=== PATIENT | female | born 1955 | race Caucasian/White ===

== ENCOUNTER 2017-06-21 22:20 | Inpatient (IN) | payer OTHER ==
[2017-06-21 23:12] LABS: #Basophils 0.1 thou/uL (0.0-0.2); #Eosinphils 0.1 thou/uL (0.0-0.7); #Lymphocytes 2.9 thou/uL (1.20-3.40); #Neutrophils 6.8 thou/uL (1.40-6.50); %Basophils 0.8 % (0.0-1.0); %Eosinophils 1.2 % (0.0-10.0); %Lymphocytes 26.4 % (21.0-51.0); %Monocytes 8.8 % (0.0-10.0); %Neutrophils 62.8 % (42.0-75.0); Hemoglobin 14.2 g/dL (12.0-16.0); Mean Corpuscular HGB CONC 34.8 g/dL (32.0-36.0); Mean Corpuscular Volume 86.2 fl (81.0-99.0); Mean Platelet Volume 6.5 fL (7.4-10.4); Platelet Count 264 thou/uL (130-400); RBC Distribution Width 11.1 % (11.5-14.5); Red Blood Cell (RBC) Count 4.73 mill/uL (4.20-5.40); White Blood Cell (WBC) Count 10.8 thou/uL (4.8-10.8)
[2017-06-21 23:24] LABS: ALT (SGPT) 34 U/L (8-55); AST (SGOT) 20 U/L (5-34); Albumin 3.9 g/dL (3.4-4.8); Alkaline Phosphatase 95 U/L (40-150); Anion Gap 15 mmol/L (10-20); BUN (Urea Nitrogen) 20 mg/dL (9.8-20.1); Bilirubin, Total 0.7 mg/dL (0.2-1.2); Calc. Creatinine Clearance 0 mL/min (70-130); Calcium 9.5 mg/dL (7.8-10.44); Carbon Dioxide 19 mmol/L (23-31); Chloride 107 mmol/L (98-107); Estimated GFR-MDRD 73; Globulin 3.4 g/dL (2.4-3.5); Glucose 109 mg/dL (80-115); Potassium 4.1 mmol/L (3.5-5.1); Protein, Total 7.3 g/dL (6.0-8.3); Sodium 137 mmol/L (136-145)
[2017-06-21 23:27] LABS: CKMB 2.7 ng/mL (0-6.6); Troponin I 0.133 ng/mL (< 0.028)
[2017-06-22] MEDS ORDERED: Aspirin 325 MG TAB ONE (00:24)
[2017-06-22 00:41] LABS: PTT 30.2 SEC (22.9-36.1); Prothrombin Time 12.9 SEC (12.0-14.7)
[2017-06-22] MEDS ORDERED: Enoxaparin Sodium 80 MG/0.8 ML SYRINGE ONE (01:53)
[2017-06-22] MEDS ORDERED: Sodium Chloride 0.9% 100 ML ONE (02:24)
[2017-06-22] MEDS ORDERED: cefTRIAXone\\ROCEPHIN 1 GM VIAL ONE (02:24)
[2017-06-22 03:17] LABS: Troponin I 0.129 ng/mL (< 0.028)
[2017-06-22] MEDS ORDERED: Acetaminophen 325 MG TAB PO PRN (03:26)
[2017-06-22] MEDS ORDERED: Ondansetron HCl/PF 4 MG/2 ML Vial IVP PRN (03:26)
[2017-06-22] MEDS ORDERED: Ondansetron ODT 4 MG TAB SL PRN (03:26)
[2017-06-22] MEDS ORDERED: Azithromycin 500 MG in Sodium Chloride 0.9% 250 ML 250 ML IVPB SCH (04:00)
[2017-06-22 04:33] VITALS: BMI 27.3
--- NOTE | 2017-06-22 05:29 | HP ---
DATE OF ADMISSION: 06/22/2017 CHIEF COMPLAINT: Shortness of breath. HISTORY OF PRESENT ILLNESS: This is a 62-year-old female with minimal past medical history who presents with a chief complaint of shortness of breath, acute onset day prior to presentation while working with physical therapy. The patient denies any prior similar issues. Denies any recent upper respiratory infections as well. Recent past medical history significant for 06/10/2017, right rotator cuff surgery. The patient has had prior surgeries and never had issues with shortness of breath postoperatively. REVIEW OF SYSTEMS: As per HPI. Constitutional: No significant weight changes , fevers or chills. HEENT: No dizziness, lightheadedness, or change in vision. Cardiovascular: No chest pressure, no chest pain, no left side arm numbness or tingling. Respiratory: Shortness of breath as noted above. No cough, no productive sputum, no issues with congestion or postnasal drip. Gastrointestinal: No nausea, vomiting, abdominal pain. No issues with constipation or diarrhea. The patient reports a retained appetite. Musculoskeletal: The patient is having some right shoulder discomfort and is working with physical therapy. Her right shoulder is currently in an immobilizing brace. Otherwise, no myalgias or arthralgias. Remainder of review of systems otherwise negative. PAST MEDICAL HISTORY: The patient denies any chronic medical issues that she is aware of. She is currently status post right shoulder labrum repair. History of right ankle surgery. Status post hysterectomy. HOME MEDICATIONS: The patient does not take any home medications. ALLERGIES: Significant for TETRACYCLINE. FAMILY HISTORY: The patient is not aware of any family history of confirmation as she is adopted. SOCIAL HISTORY: The patient is here with her at bedside. She endorses being FULL CODE. She denies any alcohol, tobacco or illicit drug use. PHYSICAL EXAMINATION: VITAL SIGNS: Temperature of 99, heart rate 92, respirations 18, satting 98% on room air, blood pressure 111/62. GENERAL: The patient is awake, alert, appropriate, in no acute distress, seated in the hospital bed, reasonable historian and oriented x3. HEENT: Moist mucous membranes. Equal ocular motions are intact. Normocephalic , atraumatic. CARDIOVASCULAR: S1, S2. No murmurs, rubs or gallops. EXTREMITIES: Pulses 2+ bilateral upper extremities, no pitting pedal edema. Respiratory: Grossly clear to auscultation, reasonable air movement. No wheezes, rales or rhonchi. Clear to auscultation bilaterally. ABDOMEN: Positive bowel sounds, soft, nontender to palpation. MUSCULOSKELETAL: The patient's right shoulder is not removed from her brace at this point in time otherwise, she is able to move her bilateral lower extremities and her left arm without difficulty and is able to self-reposition in the bed without assist. LABORATORY DATA AND IMAGING: CT of the chest was reviewed by myself, consistent with the pulmonary embolism, I do not appreciate any notable pneumonia on this imaging series. WBC 10.8, hemoglobin 14.2, hematocrit 40.8, platelets 264. INR 1.0, PT 12.9. Sodium 137, potassium 4.1, chloride 107, BUN 20, creatinine 0.8, glucose 109, calcium 9.5, total bilirubin 0.7, AST 20, ALT 34, alkaline phosphatase 95. Troponin 0.133 followed by 0.129. BNP 348.7. ASSESSMENT AND PLAN: This is a 62-year-old female who initially presented with a chief complaint of shortness of breath. 1. Shortness of breath most likely attributed to the noted bilateral pulmonary embolus. The patient has already been started on subcutaneous Lovenox full anticoagulation dosing. The patient is currently placed in the IMCU, is currently hemodynamically stable, maintaining adequate pulse oximetry saturations of 92% and better on room air. We will go ahead and check echocardiogram as well and continue with subcutaneous anticoagulation. To consider transition to an oral anticoagulant prior to D/C. 2. Status post right rotator cuff surgery, conservative management in the postoperative period. 3. Diet: Regular. 4. Activity: As tolerated. 5. Deep venous thrombosis prophylaxis. The patient is already on full dose anticoagulation. We will check bilateral lower extremity for deep venous thrombosis, determine whether or not we can place VAL or sequentials on her lower extremities for further prophylaxis if needed. 6. Admit to [facility] inpatient. 7. FULL CODE. Thank you for asking me to care for the patient. Questions or concerns, contact me at [facility]. FREDY
[2017-06-22] MEDS: Enoxaparin Sodium 80 MG/0.8 ML SYRINGE SC SCH ×2 (07:45→20:28)
--- NOTE | 2017-06-22 08:25 | CT ---
PRELIMINARY REPORT/[facility]/EMERGENCY AFTER HOURS PROCEDURE: Addendum created by Errol Echols MD on 06/22/2017 1:44 AM Central Time ([place] & [place]) THIS REPORT CONTAINS FINDINGS THAT MAY BE CRITICAL TO PATIENT CARE. The findings were verbally commun icated via telephone conference with PELON PIERCE at 1:43 AM SLOTS MANAGER on 06/22/2017. The findings were acknowledged and understood. Initial Report created on 06/22/2017 1:37 AM Central Time ([place] & [place]) EXAM: CT Angiography Chest With Intravenous Contrast CLINICAL HISTORY: 62 years old, female; Dyspnea; SOB worsening since yesterday, worse on exertion. Right rotator cuff s urgery May 10. At physical therapy yesterday began having trouble catching her breath. No cough TECHNIQUE: Axial computed tomographic angiography images of the chest with intravenous contrast using pulmonary embolism protocol. MIP reconstructed images were created and reviewed. Oblique reformatted images were created and reviewed. CONTRAST: 85 mL of ISO 370 administered intravenously. COMPARISON: No relevant prior studies available. FINDINGS: Pulmonary arteries: Focal areas of decreased density / intraluminal filling defects are present withi n the pulmonary arterial tree bilaterally consistent with acute pulmonary emboli. Aorta: Normal caliber thoracic aorta without aneurysm or dissection. Normal-variant independent origi n of the left vertebral artery directly from the aortic arch. Lungs: A few small patches of infiltrate or early small pulmonary infarction within the lateral aspec t of each lower lobe. Biapical scarring. No mass. Pleural space: No pneumothorax. No significant effusion. Heart: RV dysfunction with RV / LV ratio of 1.5. No pericardial effusion. Bones/joints: No acute fracture. No dislocation. Soft tissues: Bilateral breast implants with capsular calcification. Lymph nodes: No pathologically enlarged lymph nodes. IMPRESSION: 1. CT examination POSITIVE for acute bilateral pulmonary embolism. 2. RV dysfunction with RV / LV ratio of 1.5. 3. A few small patches of infiltrate or early small pulmonary infarction within the lateral aspect of each lower lobe. Thank you for allowing us to participate in the care of your patient. Dictated and Authenticated by: Errol Echols MD 06/22/2017 1:37 AM Central Time ([place] & [place]) FINAL REPORT CT PULMONARY ANGIO: Multiple axial tomograms obtained through the chest with IV enhancement and pulmonary angio phase. M ultiplanar reconstruction and 3D post processing performed. There are bilateral pulmonary emboli. I am in agreement with the preliminary report. POS: BRITTANI
--- NOTE | 2017-06-22 13:32 | ULT ---
BILATERAL LOWER EXTREMITY VENOUS ULTRASOUND WITH DOPPLER: HISTORY: Positive CT angiogram of the chest for PE. COMPARISON: None. TECHNIQUE: Garcia-scale, color-flow, and Doppler imaging with spectral wave-form analysis was performed to the lef t and right lower extremity venous system. FINDINGS: RIGHT LOWER EXTREMITY: There is lack of complete compressibility involving the popliteal vein, sugge sting thrombosis. The remainder of the right lower extremity superficial and deep venous system is u nremarkable. LEFT LOWER EXTREMITY: There is compressibility, presence of flow, and augmentation in the common fem oral vein, femoral vein, and popliteal vein. There is flow in the greater saphenous vein, the profun da vein, and the posterior tibial vein. IMPRESSION: Right popliteal vein deep venous thrombus. POS: BRITTANI
--- NOTE | 2017-06-22 14:30 | PQF ---
CLINICAL DOCUMENTATION IMPROVEMENT CLARIFICATION FORM: ICD-10 Updated PLEASE DO AN ADDENDUM TO THE PROGRESS NOTE WITH ANY DOCUMENTATION UPDATES OR ADDITIONS AND CARRY THROUGH TO DC SUMMARY. THANK YOU. DATE: 06/22/17 ATTN: DR. PATTERSON Please exercise your independent, professional judgment in responding to the clarification form. Clinical indicators are provided on the bottom of this form for your review Please check appropriate box(s): [ X ] (Condition) related to current/recent surgery [ ] (Condition) not related to current/recent surgery [ ] Other diagnosis [ ] Unable to determine In addition, please specify: Present on Admission (POA): [ X ] Yes [ ] No [ ] Unable to determine CLINICAL INDICATORS - SIGNS / SYMPTOMS / LABS DX: BILATERAL PULMONARY EMBOLUS RISKS: "PT REPORTS HAVING SURGERY ON THE OF LAST MONTH ON ROTATOR CUFF" ( PER ER NOTE) TREATMENT: LOVENOX (ER-PRESENT) ASPIRIN (ER) (This form is maintained as a part of the permanent medical record) 2014 [email or web address]. All Rights Reserved [email or web address] Office: [phone] FREDY
[2017-06-23 05:00] LABS: #Basophils 0.1 thou/uL (0.0-0.2); #Eosinphils 0.2 thou/uL (0.0-0.7); #Lymphocytes 2.5 thou/uL (1.20-3.40); #Monocytes 0.7 thou/uL (0.11-0.59); #Neutrophils 5.3 thou/uL (1.40-6.50); %Basophils 0.8 % (0.0-1.0); %Lymphocytes 28.6 % (21.0-51.0); %Monocytes 8.4 % (0.0-10.0); %Neutrophils 60.3 % (42.0-75.0); Hemoglobin 13.3 g/dL (12.0-16.0); Mean Corpuscular HGB CONC 34.3 g/dL (32.0-36.0); Mean Corpuscular Hemoglobin 30.6 pg (27.0-31.0); Mean Corpuscular Volume 89.2 fl (81.0-99.0); Mean Platelet Volume 6.7 fL (7.4-10.4); Platelet Count 271 thou/uL (130-400); RBC Distribution Width 11.7 % (11.5-14.5); Red Blood Cell (RBC) Count 4.34 mill/uL (4.20-5.40); White Blood Cell (WBC) Count 8.8 thou/uL (4.8-10.8)
[2017-06-23 05:13] LABS: Anion Gap 12 mmol/L (10-20); BUN (Urea Nitrogen) 15 mg/dL (9.8-20.1); Calc. Creatinine Clearance 84 mL/min (70-130); Calcium 9.2 mg/dL (7.8-10.44); Carbon Dioxide 24 mmol/L (23-31); Chloride 106 mmol/L (98-107); Estimated GFR-MDRD 72; Glucose 95 mg/dL (80-115); Potassium 4.2 mmol/L (3.5-5.1); Sodium 138 mmol/L (136-145)
[2017-06-23] MEDS: Enoxaparin Sodium 80 MG/0.8 ML SYRINGE SC SCH ×2 (07:27→20:49)
[2017-06-23] MEDS ORDERED: Acetaminophen/Codeine 30-300mg Tablet PO PRN ×2 (12:42)
[2017-06-23] MEDS: Acetaminophen 325 MG TAB PO PRN ×2 (12:49→20:55)
--- NOTE | 2017-06-23 13:00 | CON ---
DATE OF CONSULTATION: 06/23/2017 SERVICE: Pulmonary Medicine INTERVAL HISTORY: The patient is doing fine from cardiovascular and respiratory standpoint. Starting Tuesday of this week, she started having increasing shortness of breath. This slowly progressed over a period of time. On , she went out to walk to her mailbox, but had to turn around and she could not make it. At that point, she was brought to the emergency department after her googled some things that could be postop side effects associated with recent shoulder surgery. He found pulmonary embolism and brought her to the emergency department fearing that. A scan confirmed that she did in fact have a pulmonary embolism. She also had an elevated BNP and troponin. Echocardiogram was performed. The CT of the chest was consistent with right heart strain. Either way, the patient is on room air. She indicates that she had a significant improvement in her symptoms over the past 24 hours. She has been able to get up and walk around the room ever so slightly. This is not causing her significant distress any longer as it previously did. PAST MEDICAL HISTORY: None. PAST SURGICAL HISTORY: 1. Left ankle surgery. 2. Hysterectomy. 3. Right rotator cuff surgery repair. ALLERGIES: TETRACYCLINE. MEDICATIONS: Inpatient medications were reviewed. No updates were made at this time. FAMILY HISTORY: Noncontributory. She is adopted and does not know of any primary relatives. SOCIAL HISTORY: Negative for alcohol, tobacco or illicit drug use. She denies any exposure to chemicals, dust, asbestos or tuberculosis. REVIEW OF SYSTEMS: General, head, ears, eyes, nose, throat, cardiovascular, respiratory, GI, , musculoskeletal, neurologic and skin is negative except as mentioned in the HPI. PHYSICAL EXAMINATION: VITAL SIGNS: Afebrile, pulse 78, blood pressure 123/44, respirations 16, saturation 96% on room air. GENERAL: The patient is awake and alert, in no apparent distress. LUNGS: Decent air entry. There is no prolonged expiratory phase, wheezing, rhonchi or crackles. HEART: Normal rate, regular. ABDOMEN: Soft, nontender, nondistended. Bowel sounds are positive. MUSCULOSKELETAL: No cyanosis or clubbing. There is no pitting in the bilateral lower extremities. NEUROLOGIC: Grossly nonfocal. LABORATORY DATA: WBC 8.8, hemoglobin 13.3, platelets 271,000. INR 1.0. Basic metabolic profile is unremarkable. Liver function studies are unremarkable. Troponin is down trending to 0.12. BNP 348. IMAGIN. Ultrasound of bilateral lower extremities demonstrates right popliteal vein DVT. 2. Echocardiogram demonstrates normal ejection fraction. There is some diastolic heart dysfunction. There is also elevated right ventricular systolic pressure, though it was noted that the right ventricular function was normal. 3. CT of the chest demonstrates minimal ground glass changes throughout bilateral lung flor that are peripherally located, consistent with possible early evolving infarction of the lung. More importantly, there is extensive bilateral pulmonary embolism. There is right ventricular heart strain. There is a little ding out of the right ventricle. There is a touch of reflux of contrast into the inferior vena cava suggesting some mild right heart strain. ASSESSMENT: 1. Submassive pulmonary embolism. 2. Recent shoulder surgery less than 2 weeks ago. DISCUSSION AND PLAN: Because of the recent shoulder surgery, at this point, I am not willing to give her t-PA for a submassive pulmonary embolism. I will repeat a troponin and BNP tomorrow morning. I will leave her on the Lovenox 1 mg/kg twice daily for the time being. Tomorrow morning, if she has increasing signs of right heart strain, t-PA will need to be readdressed. Pulmonary Critical Care will continue to follow along, but she is going to remain in the IMCU until we decide whether or not to give her t-PA. 70 minutes have been devoted to this patient in various activities. I personally reviewed all imaging studies and laboratory data noted within this document. For fifty percent of this time, I was interacting with the patient at the bedside or coordinating care with the care team. For the remainder of the time I was immediately available to the patient in the hospital unit. FREDY
--- NOTE | 2017-06-23 14:20 | PDOC.PN ---
- Subjective Encounter Start Date: 06/23/17 Encounter Start Time: 09:40 Pt seen for followup re: pulmonary embolism. Reports occasional pleuritic chest discomfort. No nausea or vomiting. No fevers or chills. - Objective Resuscitation Status: Resuscitation Status FULL:Full Resuscitation MAR Reviewed: Yes Vital Signs & Weight: Vital Signs (12 hours) Temp Pulse Resp BP Pulse Ox 06/23/17 11:00 98.1 F 78 16 123/44 L 96 06/23/17 07:32 98.7 F 74 16 94 L 06/23/17 07:09 98.7 F 74 16 119/52 L 94 L 06/23/17 04:00 98.7 F 76 16 108/51 L 93 L Weight Weight 160 lb 4.8 oz I&O: 06/22/17 06/23/17 06/24/17 06:59 06:59 06:59 Intake Total 250 1420 300 Output Total 400 650 Balance -150 770 300 Result Diagrams: 06/23/17 04:26 06/23/17 04:26 EKG Reviewed by me: Yes (Tele; NSR) Phys Exam - Physical Examination Constitutional: NAD HEENT: moist MMs Neck: supple Respiratory: clear to auscultation bilateral Cardiovascular: RRR Neurological: moves all 4 limbs Psychiatric: normal affect Dx/Plan (1) Pulmonary embolism Code(s): I26.99 - OTHER PULMONARY EMBOLISM WITHOUT ACUTE COR PULMONALE Status : Acute (2) DVT (deep venous thrombosis) Code(s): I82.409 - ACUTE EMBOLISM AND THOMBOS UNSP DEEP VN UNSP LOWER EXTREMITY Status: Acute - Plan out of bed/ambulate * . Continue anticoagulation. 2D echo report noted. Stool occult blood test negative. Review of Systems - Review of Systems Respiratory: negative: Cough, Dry, Shortness of Breath, Hemoptysis, SOB with Excertion, Pleuritic Pain, Sputum, Wheezing Cardiovascular: chest pain. negative: palpitations, orthopnea, paroxysmal nocturnal dyspnea, edema, light headedness - Medications/Allergies Allergies/Adverse Reactions: Allergies Allergy/AdvReac Type Severity Reaction Status Date / Time Tetracyclines Allergy Verified 06/22/17 04:30 Medications: Current Medications Acetaminophen (Tylenol) 650 mg PO Q6H PRN PRN Reason: Headache/Fever or Pain Last Admin: 06/23/17 12:49 Dose: 650 mg Acetaminophen/Codeine Phosphate (Tylenol #3) 1 tab PO Q6H PRN PRN Reason: Moderate Pain (4-6) Acetaminophen/Codeine Phosphate (Tylenol #3) 2 tab PO Q6H PRN PRN Reason: Moderate to Severe Pain (6-10) Enoxaparin Sodium (Lovenox) 70 mg SC 0900,2100 JUAN Last Admin: 06/23/17 07:27 Dose: 70 mg
[2017-06-24 04:42] LABS: #Eosinphils 0.1 thou/uL (0.0-0.7); #Monocytes 0.6 thou/uL (0.11-0.59); #Neutrophils 4.2 thou/uL (1.40-6.50); %Basophils 0.5 % (0.0-1.0); %Eosinophils 2.1 % (0.0-10.0); %Lymphocytes 28.5 % (21.0-51.0); %Neutrophils 59.8 % (42.0-75.0); Hemoglobin 12.8 g/dL (12.0-16.0); Mean Corpuscular HGB CONC 35.1 g/dL (32.0-36.0); Mean Corpuscular Hemoglobin 31.9 pg (27.0-31.0); Mean Platelet Volume 6.7 fL (7.4-10.4); Platelet Count 271 thou/uL (130-400); RBC Distribution Width 11.6 % (11.5-14.5); Red Blood Cell (RBC) Count 4.01 mill/uL (4.20-5.40)
[2017-06-24] MEDS: Acetaminophen 325 MG TAB PO PRN (04:47)
[2017-06-24 04:50] LABS: Anion Gap 12 mmol/L (10-20); BUN (Urea Nitrogen) 14 mg/dL (9.8-20.1); Calc. Creatinine Clearance 84 mL/min (70-130); Carbon Dioxide 26 mmol/L (23-31); Chloride 105 mmol/L (98-107); Estimated GFR-MDRD 72; Glucose 101 mg/dL (80-115); Potassium 3.9 mmol/L (3.5-5.1); Sodium 139 mmol/L (136-145)
[2017-06-24 04:56] LABS: Troponin I 0.031 ng/mL (< 0.028)
[2017-06-24] MEDS: Enoxaparin Sodium 80 MG/0.8 ML SYRINGE SC SCH (07:49)
[2017-06-24] MEDS ORDERED: Rivaroxaban 15 MG TAB PO SCH (09:00)
[2017-06-24 11:29] VITALS: BP 121/62; TEMP 98.2
--- NOTE | 2017-06-24 12:18 | PRG ---
DATE OF SERVICE: 06/24/2017 SERVICE: Pulmonary Medicine. INTERVAL HISTORY: The patient is fine from a cardiovascular and respiratory standpoint. She denies any current fevers, chills, nausea, vomiting or chest discomfort. Otherwise, there has been no inter jayla change to her condition. She is really happy with the way things are going. She has been able t o move around the room pretty easily. OBJECTIVE: VITAL SIGNS: Afebrile, pulse 72, blood pressure 121/62, respirations 14, saturation 96% on room air. GENERAL: The patient is awake, alert, no apparent distress. LUNGS: Excellent air entry. There is no prolonged expiratory phase, wheezing, rhonchi or crackles. HEART: Normal rate, regular. ABDOMEN: Soft, nontender, nondistended. Bowel sounds are positive. MUSCULOSKELETAL: No cyanosis or clubbing. No pitting in the bilateral lower extremities. NEUROLOGIC: Grossly nonfocal. LABORATORY DATA: Basic metabolic profile is unremarkable. Troponin is down trending to 0.03, BNP is now normal at 36.5. CBC is otherwise unremarkable. ASSESSMENT: 1. Submassive pulmonary embolism. 2. Right ventricular heart strain, likely resolving. 3. Recent shoulder surgery, less than 2 weeks ago. DISCUSSION AND PLAN: The patient is doing fantastic from a cardiovascular and respiratory standpoint , can be transitioned home on a direct oral anticoagulant. Pulmonary Critical Care will continue to follow if she remains in house, but from my perspective, she is stable for transition to home. She u nderstands that she could be at increased risk of sudden cardiac , particularly over the next co uple of weeks and that if she has any recurrence in symptoms, she needs to come back to the Emergency Department immediately.
--- NOTE | 2017-06-24 19:12 | DIS ---
DATE OF ADMISSION: 06/22/2017 DATE OF DISCHARGE: 06/24/2017 PRIMARY CARE PROVIDER: None. DISCHARGE DIAGNOSES: 1. Pulmonary embolism. 2. Deep vein thrombosis. CONSULTATION DURING THIS HOSPITALIZATION: Pulmonology, Dr. Alexander. CONDITION OF PATIENT AT THE TIME OF DISCHARGE: Stable. I assessed Ms. Jensen on the day of discharge. She denies any chest pain or shortness of breath. She is ambulating well. Vital signs are stable. S1 and S2 are heard, regular. Lungs are clear to auscultation bilaterally. HOSPITAL COURSE: Ms. Jensen is a pleasant 62-year-old lady, who was admitted to [facility] for bilateral pulmonary emboli. CT scan also suggested RV dysfunction with RV/LV ratio o f 1.5 as well as a few small patches of infiltrate or early small pulmonary infarction. Followup 2D echocardiogram showed normal right ventricular size and function. She was seen by Pulmonology Dino sanches. She also had bilateral lower extremity Dopplers, which showed a right popliteal vein deep venous thrombus. She was initially treated with Lovenox and is being changed to rivaroxaban on the day of d ischarge. She is advised to return to emergency room for new or worsening symptoms. She is also adv ised to have a primary care physician and follow up with the physician in 3 to 5 days. DISCHARGE MEDICATIONS: Rivaroxaban 15 mg 2 times a day for 21 days, then 20 mg daily. LABORATORY DATA: On the day of discharge, she has a white count of 7000, hemoglobin 12.8, platelet c ount 271,000, normal Chem-7. Her BNP during this hospitalization was 348.7. Her initial troponin was indeterminate at 0.129 and s ubsequently trended down to 0.031. DISCHARGE DESTINATION: Home. TOTAL AMOUNT OF TIME SPENT COORDINATING THIS DISCHARGE: 32 minutes.
--- NOTE | 2017-06-25 18:29 | EKG ---
Test Reason : SOB Blood Pressure : / mmHG Vent. Rate : 094 BPM Atrial Rate : 094 BPM P-R Int : 142 ms QRS Dur : 084 ms QT Int : 390 ms P-R-T Axes : 041 -51 -31 degrees QTc Int : 487 ms Normal sinus rhythm Left anterior fascicular block Septal infarct , age undetermined T wave abnormality, consider anterior ischemia Poor R wave progression Left axis deviation Abnormal ECG Confirmed by PELON PIERCE ([id number]), book editor ANDRIY HERNANDEZ ([id number]) on 06/25/2017 6:29:43 PM Referred By: Confirmed By:PELON PIERCE
== END 2017-06-24 12:13 | disposition home or self-care (01) | DRG 300 ==
LOC: SCSER 22:20 → IMCU/EMU 06-22 01:50
PROVIDERS: ADMIT Internal Medicine; ATTEND Internal Medicine
DX: T81.718A Complication of other artery following a procedure, not elsewhere classified, initial encounter (principal); I82.431 Acute embolism and thrombosis of right popliteal vein; I26.99 Other pulmonary embolism without acute cor pulmonale; Z88.1 Allergy status to other antibiotic agents; Y83.8 Other surgical procedures as the cause of abnormal reaction of the patient, or of later complication, without mention of misadventure at the time of the procedure
CPT/HCPCS: 36415; 71275; 80048; 80053; 82553; 83880; 84484; 85025; 85610; 85730; 93005; 93306; 93970; 96365; 96372; G8978-GP-CJ; G8979-GP-CJ; G8980-GP-CJ; J0456; J0696; J1650; J7050

== ENCOUNTER 2017-06-27 10:43 | Outpatient (CLI) | payer OTHER ==
--- NOTE | 2017-06-27 11:50 | RAD ---
PA AND LATERAL VIEWS CHEST: Date: 06/27/17 HISTORY: Dyspnea. FINDINGS: The heart size is borderline. The lungs are well expanded with biapical thickening. No lobar consolid ation, pneumothoraces, or pleural effusions are seen. Bilateral calcified breast implants are present . Postop changes are seen in the right humeral head. IMPRESSION: No acute process. POS: TIFFANY
== END 2017-06-27 10:44 | disposition home or self-care (01) ==
LOC: RAD 10:43
PROVIDERS: ATTEND Internal Medicine
DX: R06.00 Dyspnea, unspecified (principal)
CPT/HCPCS: 71046

== ENCOUNTER 2017-07-12 13:08 | Outpatient (CLI) | payer OTHER ==
--- NOTE | 2017-07-12 14:58 | RAD ---
RADIOGRAPH CHEST 2 VIEWS: HISTORY: 62-year-old female with dyspnea. FINDINGS: There is no air space density, pulmonary edema, pleural effusion, pneumothorax, or cardiomegaly. IMPRESSION: No acute cardiopulmonary findings. josué POS: BRITTANI
== END 2017-07-12 13:09 | disposition home or self-care (01) ==
LOC: RAD 13:08
PROVIDERS: ATTEND Internal Medicine
DX: R06.00 Dyspnea, unspecified (principal)
CPT/HCPCS: 71046

== ENCOUNTER 2024-04-23 13:50 | Outpatient (CLI) | payer MEDICARE | END 2024-04-23 13:51 | disposition home or self-care (01) | LOC: BICMAMMO 13:50 | PROVIDERS: ATTEND Internal Medicine | DX: R92.8 Other abnormal and inconclusive findings on diagnostic imaging of breast (principal) | CPT/HCPCS: 76642; 77065; G0279 ==